=== PATIENT | male | born 1970 | race Two or more races ===

== ENCOUNTER 2021-03-08 09:44 | Emergency (ER) | payer OTHER ==
[~2021-03-08] VITALS: Ht 177.8 cm; Wt 95.3 kg
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
--- NOTE | 2021-03-08 09:53 | NUR ---
DR LY AT BEDSIDE FOR EVAL.
--- NOTE | 2021-03-08 09:56 | NUR ---
PT TO RADIOLOGY FOR HEAD, C SPINE CT SCAN, R WRIST XRAY VIA GURNEY.
[2021-03-08] MEDS ORDERED: HYDR-3980 PO (10:33)
[2021-03-08] MEDS ORDERED: HYDROCODONE/APAP 5/325MG TABLET ONE (10:34)
--- NOTE | 2021-03-08 10:47 | NUR ---
Patient discharged to home in stable condition. Written and verbal after care instructions given. Patient verbalizes understanding of instruction.
[2021-03-08 10:48] VITALS: BP 134/61
[2021-03-08] MEDS ORDERED: HYDROCODONE/APAP 5/325MG TABLET PO ONE (11:00)
== END 2021-03-08 10:49 | disposition home or self-care (01) ==
LOC: ER 09:45
DX: S13.4XXA Sprain of ligaments of cervical spine, initial encounter (principal); S09.8XXA Other specified injuries of head, initial encounter; M25.531 Pain in right wrist; Z88.1 Allergy status to other antibiotic agents; V49.49XA Driver injured in collision with other motor vehicles in traffic accident, initial encounter; Y93.89 Activity, other specified; Y92.413 State road as the place of occurrence of the external cause; Y99.8 Other external cause status
CPT/HCPCS: 70450-TC; 72125-TC; 73110